=== PATIENT | male | born 1995 | race Caucasian/White ===

== ENCOUNTER 2018-06-27 10:21 | Emergency (ER) | payer MEDICAID, OTHER ==
[~2018-06-27] VITALS: Wt 90.0 kg
[2018-06-27 10:23] VITALS: RESP 18
[2018-06-27] MEDS ORDERED: SOD CHLORIDE 0.9% 1,000 ML IV STA (11:08)
[2018-06-27] MEDS ORDERED: morphine 4 MG/ML VIAL IV STA (11:08)
[2018-06-27] MEDS ORDERED: ONDANSETRON 4 MG INJ IV STA (11:08)
[2018-06-27] MEDS ORDERED: IOHEXOL 300MG/ML 150 ML BTL ONE (12:16)
[2018-06-27] MEDS ORDERED: SOD CHLORIDE 0.9% 100 ML ONE (12:16)
[2018-06-27] MEDS ORDERED: ACET500C5 PO (13:16)
[2018-06-27] MEDS ORDERED: FAMO-96 PO (13:16)
[2018-06-27 13:40] VITALS: BP 151/64; PULSE 73
--- NOTE | 2018-06-27 14:08 | ERD ---
ER Documentation Chief Complaint Chief Complaint AP SINCE L;AST NIGHT HPI 23-year-old male presenting with abdominal pain since last night. Patient is states is a generalized constant pain with some episodes of vomiting. No changes in urination or bowel movement. No fevers. Has not taken medications for symptoms. Denies chest pain or shortness of breath. Denies medical problems. NKDA. Surgical history denies. Social history denies ROS All systems reviewed and are negative except as per history of present illness. Medications Home Meds Active Scripts Famotidine* (Pepcid*) 20 Mg Tablet, 20 MG PO BID for 4 Days, #30 TAB Prov:CYRUS BROOKS PA-C 06/27/18 Acetaminophen* (Tylophen*) 500 Mg Capsule, 1 CAP PO Q6H PRN for PAIN AND OR ELEVATED TEMP, #20 CAP Prov:CYRUS BROOKS PA-C 06/27/18 Reported Medications [None] No Conflict Check 09/17/09 Allergies Allergies: Coded Allergies: No Known Allergies (Verified Allergy, Mild, 09/17/09) PMhx/Soc History of Surgery: No Anesthesia Reaction: No Hx Neurological Disorder: No Hx Respiratory Disorders: No Hx Cardiac Disorders: No Hx Psychiatric Problems: No Hx Miscellaneous Medical Probl: No Hx Alcohol Use: No Hx Substance Use: No Hx Tobacco Use: No Smoking Status: Never smoker FmHx Family History: No diabetes, No coronary disease, No other Physical Exam Vitals Vital Signs Date Temp Pulse Resp B/P (MAP) Pulse Ox O2 O2 Flow FiO2 Time Delivery Rate 06/27/18 73 151/64 13:40 (93) 06/27/18 99.8 85 18 152/67 99 10:23 (95) Physical Exam GENERAL: The patient is well-appearing, well-nourished, in no acute distress HEENT: Atraumatic. Conjunctivae are pink. Pupils equal, round, and reactive to light. There is no scleral icterus. Tympanic membranes clear bilaterally. Oropharynx clear. NECK: C-spine is soft and supple. There is no meningismus. There is no cervical lymphadenopathy. CHEST: Clear to auscultation bilaterally. There are no rales, wheezes or rhonchi. HEART: Regular rate and rhythm. No murmurs, clicks, rubs or gallops. ABDOMEN:Soft, nontender and nondistended. Good bowel sounds. No rebound or guarding. No gross peritonitis. No gross organomegaly or masses. Result Diagram: 06/27/18 1124 06/27/18 1124 Results 24 hrs Laboratory Tests Test 06/27/18 11:24 06/27/18 11:25 White Blood Count 11.2 10^3/ul Red Blood Count 5.79 10^6/ul Hemoglobin 16.5 g/dl Hematocrit 49.5 % Mean Corpuscular Volume 85.5 fl Mean Corpuscular Hemoglobin 28.5 pg Mean Corpuscular Hemoglobin Concent 33.3 g/dl Red Cell Distribution Width 12.8 % Platelet Count 264 10^3/UL Mean Platelet Volume 11.5 fl Immature Granulocytes % 0.400 % Neutrophils % 77.4 % Lymphocytes % 11.9 % Monocytes % 9.3 % Eosinophils % 0.5 % Basophils % 0.5 % Nucleated Red Blood Cells % 0.0 /100WBC Immature Granulocytes # 0.040 10^3/ul Neutrophils # 8.7 10^3/ul Lymphocytes # 1.3 10^3/ul Monocytes # 1.1 10^3/ul Eosinophils # 0.1 10^3/ul Basophils # 0.1 10^3/ul Nucleated Red Blood Cells # 0.0 10^3/ul Sodium Level 143 mmol/L Potassium Level 4.2 mmol/L Chloride Level 102 mmol/L Carbon Dioxide Level 29 mmol/L Anion Gap 12 Blood Urea Nitrogen 9 mg/dl Creatinine 0.73 mg/dl Est Glomerular Filtrat Rate mL/min > 60 mL/min Glucose Level 104 mg/dl Calcium Level 9.6 mg/dl Total Bilirubin 0.9 mg/dl Direct Bilirubin 0.00 mg/dl Indirect Bilirubin 0.9 mg/dl Aspartate Amino Transf (AST/SGOT) 25 IU/L Alanine Aminotransferase (ALT/SGPT) 35 IU/L Alkaline Phosphatase 87 IU/L Total Protein 8.7 g/dl Albumin 4.8 g/dl Globulin 3.90 g/dl Albumin/Globulin Ratio 1.23 Lipase 70 U/L Urine Color YELLOW Urine Clarity CLEAR Urine pH 7.0 Urine Specific [place] 1.017 Urine Ketones TRACE mg/dL Urine Nitrite NEGATIVE mg/dL Urine Bilirubin NEGATIVE mg/dL Urine Urobilinogen NEGATIVE mg/dL Urine Leukocyte Esterase NEGATIVE Jenna/ul Urine Microscopic RBC 7 /HPF Urine Microscopic WBC 1 /HPF Urine Hemoglobin 2+ mg/dL Urine Glucose NEGATIVE mg/dL Urine Total Protein NEGATIVE mg/dl Current Medications Medications Dose Sig/[place] Start Time Status Last (Trade) Ordered Route PRN Stop Time Admin Dose Reason Admin Sodium 1,000 ml @ Q1H STAT 06/27/18 DC 06/27/18 Chloride 1,000 mls/hr IV 11:08 11:31 06/27/18 12:07 Morphine 4 mg ONCE STAT 06/27/18 DC 06/27/18 Sulfate IV 11:08 11:32 (morphine) 06/27/18 11:10 Ondansetron 4 mg ONCE STAT 06/27/18 DC 06/27/18 HCl (Zofran IV 11:08 11:31 Inj) 06/27/18 11:10 IV Flush 10 ml STK-MED 06/27/18 DC (NS 10 ml) ONCE .ROUTE 12:16 06/27/18 12:17 Sodium 100 ml @ ud STK-MED 06/27/18 DC Chloride ONCE .ROUTE 12:16 06/27/18 12:17 Iohexol 150 ml STK-MED 06/27/18 DC (Omnipaque ONCE .ROUTE 12:16 300mg/ ml) 06/27/18 12:17 Procedures/MDM DIAGNOSTIC IMAGING REPORT Patient: JERE DIAZ : 1995 Age: 23 Sex: M MR #: [id number] DOS: 06/27/18 1108 Ordering MD: MARIA ANTONIA BROOKS PA-C Location: [facility] Room/Bed: PROCEDURE: CT Abdomen and pelvis with contrast. CLINICAL INDICATION: Right lower quadrant pain TECHNIQUE: CT scan of the abdomen and pelvis with contrast was performed on a multidetector high-resolution CT scan. The patient was scanned following the uncomplicated intravenous administration of 100 ml Omnipaque-300. Coronal and sagittal reformatted images were obtained from the axial source images. Standard CT of the abdomen pelvis with contrast protocols were performed. The total exam CTDI equals 16.65 mGy and the total exam DLP equals 1124.76 mGy- cm. One or more of the following dose reduction techniques were used: - Automated exposure control. - Adjustment of the mA and/or kV according to patient size. Use of iterative reconstruction technique. Dicom images are available COMPARISON: None. FINDINGS: The stomach, small bowel, large bowel and appendix are unremarkable. No evidence of intra-abdominal free air, free fluid, abscesses or lymphadenopathy. Kidneys normal in size without calcified calculi hydronephrosis or intra renal masses bilaterally. No evidence of ureteral calcified calculi or dilatation. Partially contracted otherwise unremarkable urinary bladder. Prostate unremarkable. Normal size liver with hepatic fatty infiltration and focal fatty sparing subcapsular right lobe of the liver adjacent ligamentum teres. No hepatic masses. Spleen pancreas adrenal glands and gallbladder unremarkable. No biliary ductal dilation. Small focal patchy consolidation involving the posterior right lower lobe may all be due to atelectasis and scarring. Pneumonitis cannot be excluded. Aorta unremarkable. Abdominal pelvic wall unremarkable. Osseous structures unremarkable. IMPRESSION: 1. No evidence of gastrointestinal disease. 2. No calcified urinary calculi or obstructive uropathy. 3. Negative intra-abdominal free air fluid abscesses or lymphadenopathy. 4. Hepatic fatty infiltration. MDM: 23-year-old male presenting with abdominal pain since last night. Patient's blood work and CT scan are within normal limits. I have low suspicion for acute abdominal emergency. Patient is discharged with supportive medications. Patient is told symptoms change or worsen to return immediately to the ER. All questions answered at discharge Departure Diagnosis: Primary Impression: Abdominal pain Condition: Stable Patient Instructions: Abdominal Pain Referrals: [facility] YOU HAVE RECEIVED A MEDICAL SCREENING EXAM AND THE RESULTS INDICATE THAT YOU DO NOT HAVE A CONDITION THAT REQUIRES URGENT TREATMENT IN THE EMERGENCY DEPARTMENT. FURTHER EVALUATION AND TREATMENT OF YOUR CONDITION CAN WAIT UNTIL YOU ARE SEEN IN YOUR DOCTORS OFFICE WITHIN THE NEXT 1-2 DAYS. IT IS YOUR RESPONSIBILITY TO MAKE AN APPOINTMENT FOR FOLOW-UP CARE. IF YOU HAVE A PRIMARY DOCTOR --you should call your primary doctor and schedule an appointment IF YOU DO NOT HAVE A PRIMARY DOCTOR YOU CAN CALL OUR PHYSICIAN REFERRAL HOTLINE AT IF YOU CAN NOT AFFORD TO SEE A PHYSICIAN YOU CAN CHOSE FROM THE FOLLOWING [facility] [address] [facility] [address] [facility] [address] [facility] [address] [facility]. [facility] [address] [facility]. [facility] [address] Additional Instructions: FOLLOW UP WITH YOUR PRIMARY CARE PHYSICIAN TOMORROW.Return to this facility if you are not improving as expected. CYRUS BROOKS PA-C June 27, 2018 14:08
== END 2018-06-27 13:41 | disposition home or self-care (01) ==
LOC: FTE 10:21
DX: R10.9 Unspecified abdominal pain (principal); R11.10 Vomiting, unspecified
CPT/HCPCS: 74177; 80053; 81001; 83690; 85025; J2270; J2405; J7030; Q9967; Z7610; 36415; 96361; 96374; 96375